=== PATIENT | female | born 1965 | race Caucasian/White ===

== ENCOUNTER 2022-04-27 08:34 | Day surgery (SDC) | payer OTHER ==
[~2022-04-27] VITALS: Ht 180.3 cm; Wt 113.1 kg
[2022-04-27] MEDS ORDERED: Lisinopril2.5 MG (09:13)
[2022-04-27] MEDS ORDERED: EUTHYROX50 MCG (09:13)
[2022-04-27] MEDS ORDERED: INSULANI (09:13)
[2022-04-27] MEDS ORDERED: METF500 (09:13)
--- NOTE | 2022-04-27 10:51 | NUR ---
04/27/22 1051 Licha López 0.1ML OF EPI 1MG/ML ADDED TO 20ML OF ROPIVICAINE 0.2% TO CREATE A SOLUTION OPF ROPIVICAINE 0.2% WITH EPI 1:200,000.
== END 2022-04-27 12:51 | disposition home or self-care (01) ==
LOC: ORSCSDS 08:34
PROVIDERS: Podiatrist Foot & Ankle Surgery
PROC: 0QBL0ZZ Excision of Right Tarsal, Open Approach (ICD-10-PCS; principal; 2022-04-27 10:00)
PROC: 0QBN0ZZ Excision of Right Metatarsal, Open Approach (ICD-10-PCS; principal; 2022-04-27 10:00)
PROC: 0SGH04Z Fusion of Right Tarsal Joint with Internal Fixation Device, Open Approach (ICD-10-PCS; principal; 2022-04-27 10:00)
DX: M19.071 Primary osteoarthritis, right ankle and foot (principal); M21.611 Bunion of right foot; M14.671 Charcot's joint, right ankle and foot; E11.42 Type 2 diabetes mellitus with diabetic polyneuropathy; E03.9 Hypothyroidism, unspecified; G47.33 Obstructive sleep apnea (adult) (pediatric); Z87.891 Personal history of nicotine dependence; I10 Essential (primary) hypertension; Z79.84 Long term (current) use of oral hypoglycemic drugs; Z79.899 Other long term (current) drug therapy
CPT/HCPCS: 82947; A9270; C1776; J0171; J0690; J1100; J1885; J2250; J2370; J2405; J2704; J2795; J3010; J7120

== ENCOUNTER 2022-09-14 06:15 | Day surgery (SDC) | payer OTHER ==
[~2022-09-14] VITALS: Ht 180.3 cm; Wt 115.5 kg
[~2022-09-14 06:15] MED LIST: ALBU90OI INH; EUTHYROX50 MCG; GABA300 PO; INSULANI; LISINOPRIL-HCT1 EAC1 PO; LORA.5; Lisinopril2.5 MG; METF500
--- NOTE | 2022-09-14 08:00 | NUR ---
09/14/22 0800 OSCAR TORIBIO 0.15MG OF EPI ADDED TO 30MLS OF ROPIVACAINE 0.5% TO CREATE A LOCAL SOLUTION OF ROPIVACAINE 0.5% WITH EPI 1:200,000. LOCAL POURED ONTO STERILE FIELD FOR USE DURING CASE.
--- NOTE | 2022-09-14 11:17 | NUR ---
09/14/22 Duy7 Lauren Adams 111Jas PO PAIN MEDICATION GIVEN PER ORDERS FOR PAIN 02/06, BP 118/71, FL 71, RR 18, SPO2 97%
== END 2022-09-14 11:43 | disposition home or self-care (01) ==
LOC: ORSCSDS 06:15
PROVIDERS: Podiatrist Foot & Ankle Surgery
PROC: 0SGK04Z Fusion of Right Tarsometatarsal Joint with Internal Fixation Device, Open Approach (ICD-10-PCS; principal; 2022-09-14 07:30)
PROC: 0QSP04Z Reposition Left Metatarsal with Internal Fixation Device, Open Approach (ICD-10-PCS; principal; 2022-09-14 07:30)
DX: M21.612 Bunion of left foot (principal); R60.0 Localized edema; E11.9 Type 2 diabetes mellitus without complications; Z87.891 Personal history of nicotine dependence; E03.9 Hypothyroidism, unspecified; F41.8 Other specified anxiety disorders; I10 Essential (primary) hypertension; Z79.4 Long term (current) use of insulin; E78.1 Pure hyperglyceridemia; Z79.899 Other long term (current) drug therapy
CPT/HCPCS: 82947; A9270; C1713; J0171; J0690; J1100; J1885; J2250; J2405; J2704; J2795; J3010

== ENCOUNTER 2025-05-24 12:27 | Emergency (ER) | payer OTHER ==
[~2025-05-24] VITALS: Ht 180.3 cm; Wt 98.4 kg
[2025-05-24] MEDS ORDERED: Ondansetron HCl 2 MG / ML 2ML Vial IV ONE (12:45)
[2025-05-24] MEDS ORDERED: Ketorolac Tromethamine 15mg Vial IV ONE (12:45)
[2025-05-24] MEDS ORDERED: NS 1,000 ML IV SCH (13:05)
[2025-05-24] MEDS ORDERED: FentaNYL Citrate 50 MCG/ML 2 ML Injection IV ONE (13:10)
[2025-05-24 13:19] LABS: BASOPHILS ABSOLUTE AUTO 0.05 K/mm3 (0.00-0.23); BASOPHILS PERCENT AUTO 1 % (0-2); EOSINOPHILS ABSOLUTE AUTO 0.07 K/mm3 (0.00-0.68); EOSINOPHILS PERCENT AUTO 1 % (0-6); Hematocrit 44.9 % (33.0-51.0); Hemoglobin 15.6 g/dL (11.5-16.0); IMMATURE GRAN ABSOLUTE AUTO 0.02 K/mm3 (0.00-0.10); IMMATURE GRAN PERCENT AUTO 0 % (0-1); LYMPHOCYTES ABSOLUTE AUTO 2.13 K/mm3 (0.84-5.20); LYMPHOCYTES PERCENT AUTO 21 % (21-46); MONOCYTES ABSOLUTE AUTO 0.60 K/mm3 (0.16-1.47); MONOCYTES PERCENT AUTO 6 % (4-13); Mean Corpuscular HGB Conc 34.7 g/dL (31.5-36.5); Mean Corpuscular Volume 99 fL (80-100); NEUTROPHILS ABSOLUTE AUTO 7.22 K/mm3 (1.96-9.15); NEUTROPHILS PERCENT AUTO 72 % (41-73); NRBC ABSOLUTE 0.00 K/mm3 (0.00-0.02); NRBC Auto 0.0 /100 WBC (0.0-0.2); Platelet Count 262 K/mm3 (150-400); RDW Coefficient Variation 12.8 % (11.7-14.2); RDW Standard Deviation 46.4 fL (35.1-46.3)
[2025-05-24] MEDS ORDERED: Haloperidol Lactate Inj. 5 MG/ML Injection IV ONE (13:30)
[2025-05-24] MEDS ORDERED: HYDROmorphone HCl/Pf 1MG SYR IV ONE ×2 (13:50→14:35)
[2025-05-24 14:30] LABS: Alanine Aminotransfer (ALT/SGP 20.0 U/L (12-78); Albumin, Blood 3.8 g/dL (3.4-5.0); Albumin/Globulin Ratio 1.0 (0.8-1.8); Anion Gap 13.0 mmol/L (3-11); Aspartate Aminotrans (AST/SGOT 17.0 U/L (12-37); Bilirubin, Total 0.8 mg/dL (0.1-1.0); Blood Urea Nitrogen 19.0 mg/dL (8-24); CO2, Blood 24.0 mmol/L (21-32); Calcium, Blood 9.6 mg/dL (8.5-10.1); Chloride, Blood 105.0 mmol/L (98-108); Creatinine, Blood 1.09 mg/dL (0.40-1.00); Globulin, Blood 4.0 g/dL (2.2-4.0); Glucose, Blood 226.0 mg/dL (70-99); Magnesium, Blood 1.3 mg/dL (1.6-2.4); Phosphorus, Blood 2.5 mg/dL (2.5-4.9); Potassium, Blood 3.9 mmol/L (3.5-5.5); Sodium, Blood 138.0 mmol/L (136-145); Total Protein, Blood 7.8 g/dL (6.4-8.2)
[2025-05-24] MEDS ORDERED: Mag Sulfate 1 GM/D5% 100ML 100 ML IV ONE (14:40)
[2025-05-24 14:43] LABS: pH Blood Venous 7.42 (7.34-7.37)
[2025-05-24] MEDS ORDERED: ONDA8 PO (15:41)
[2025-05-24 15:59] VITALS: BP 145/94
== END 2025-05-24 15:59 | disposition home or self-care (01) ==
LOC: ER 12:27
PROVIDERS: Physician Assistant
DX: R11.2 Nausea with vomiting, unspecified (principal); F12.90 Cannabis use, unspecified, uncomplicated; E03.9 Hypothyroidism, unspecified; E11.40 Type 2 diabetes mellitus with diabetic neuropathy, unspecified; Z79.4 Long term (current) use of insulin; Z79.84 Long term (current) use of oral hypoglycemic drugs; Z79.890 Hormone replacement therapy
CPT/HCPCS: 74177; 80053; 82010; 82803; 82947; 83735; 84100; 85025; 93005; 93010; 96365; 96375; 96376; 99284-25; J1171; J1630; J1885; J2405; J3010; J3475; J7030; Q9967